=== PATIENT | female | born 1980 | race Caucasian/White ===

== ENCOUNTER 2019-03-25 11:37 | Emergency (ER) | payer OTHER ==
[2019-03-25 12:00] VITALS: TEMP 98.2
--- NOTE | 2019-03-25 12:39 | ED ---
General Adult HPI - General Chief complaint: Recheck/Abnormal Lab/Rx Stated complaint: Med refill Time Seen by Provider: 03/25/19 12:06 Source: patient, RN notes reviewed Mode of arrival: ambulatory Limitations: no limitations - History of Present Illness Initial comments: 38-year-old female presents emergency Department requesting medication refill. Patient states she is now for last 2 days. Patient is on Geodon and Lamictal. Patient states that she has been getting the runaround because she was too stable for [facility] and states that she had numerous amounts for her medications. Patient states that she was told she had insurance would not when she fell she did not. She states she does have insurance now and has an appointment. Patient denies any suicidal or homicidal. Patient offers no other complaints. - Related Data Home Medications Medication Instructions Recorded Confirmed Atorvastatin [Lipitor] 10 mg PO HS 03/25/19 03/25/19 Buspar Unknown Dose 1 tab PO BID 03/25/19 03/25/19 Previous Rx's Medication Instructions Recorded Ziprasidone [Geodon] 40 mg PO HS #14 cap 03/25/19 lamoTRIgine [LaMICtal] 200 mg PO HS #14 tab 03/25/19 Allergies Allergy/AdvReac Type Severity Reaction Status Date / Time venlafaxine [From Effexor] Allergy Swelling Verified 03/25/19 12:30 Review of Systems ROS Statement: Those systems with pertinent positive or pertinent negative responses have been documented in the HPI. ROS Other: All systems not noted in ROS Statement are negative. Past Medical History Past Medical History: Hyperlipidemia History of Any Multi-Drug Resistant Organisms: None Reported Additional Past Surgical History / Comment(s): neck, back Past Psychological History: Bipolar Smoking Status: Never smoker Past Alcohol Use History: None Reported Past Drug Use History: None Reported General Exam Limitations: no limitations General appearance: alert, in no apparent distress Head exam: Present: atraumatic, normocephalic, normal inspection Neck exam: Present: normal inspection, full ROM. Absent: tenderness, meningismus, lymphadenopathy Respiratory exam: Present: normal lung sounds bilaterally. Absent: respiratory distress, wheezes, rales, rhonchi, stridor Cardiovascular Exam: Present: regular rate, normal rhythm, normal heart sounds. Absent: systolic murmur, diastolic murmur, rubs, gallop, clicks GI/Abdominal exam: Present: soft, normal bowel sounds. Absent: distended, tenderness, guarding, rebound, rigid Neurological exam: Present: alert, oriented X3 Psychiatric exam: Present: normal affect, normal mood Skin exam: Present: warm, dry, intact, normal color. Absent: rash Course Vital Signs 03/25/19 11:54 Temperature 98.2 F Pulse Rate 118 H Respiratory 18 Rate Blood Pressure 116/75 O2 Sat by Pulse 97 Oximetry Medical Decision Making - Medical Decision Making Patient will be provided prescriptions for 2 weeks and will follow up at her appointment. Disposition Clinical Impression: Encounter for medication refill, Bipolar disorder Disposition: HOME SELF-CARE Condition: Stable Instructions (If sedation given, give patient instructions): Bipolar Disorder (ED) Additional Instructions: Please return to the Emergency Department if symptoms worsen or any other concerns. Prescriptions: Ziprasidone [Geodon] 40 mg PO HS #14 cap lamoTRIgine [LaMICtal] 200 mg PO HS #14 tab Is patient prescribed a controlled substance at d/c from ED?: No Referrals: None,Stated [Primary Care Provider] - 1-2 days Time of Disposition: 12:38
[2019-03-25 12:54] VITALS: BP 118/74; PULSE 98; RESP 16
== END 2019-03-25 12:50 | disposition home or self-care (01) ==
LOC: EC 11:37
DX: Z76.0 Encounter for issue of repeat prescription (principal); F31.9 Bipolar disorder, unspecified; E78.5 Hyperlipidemia, unspecified; Z79.899 Other long term (current) drug therapy; Z88.8 Allergy status to other drugs, medicaments and biological substances
CPT/HCPCS: 99281

== ENCOUNTER 2019-09-02 21:14 | Inpatient (IN) | payer MEDICAID, OTHER ==
--- NOTE | 2019-09-02 21:36 | ED ---
General Adult HPI - General Chief complaint: Psychiatric Symptoms Stated complaint: Mental Health Time Seen by Provider: 09/02/19 21:22 Source: patient Mode of arrival: ambulatory Limitations: no limitations - History of Present Illness Initial comments: Dictation was produced using [employer] dictation software. please excuse any grammatical, word or spelling errors. Chief Complaint: 39-year-old female past medical history of psychiatric disease presents with suicidal ideation. History of Present Illness: 39-year-old female she presents here voluntarily. She is accompanied by family member. Patient allegedly has been feeling suicidal. She wants to shoot herself with a gun. Patient denies any homicidal ideation. Denies any visual or auditory hallucinations. Patient takes Geodon regularly. She however reports that she has not been taking medications like prescribed. Patient supposedly tried to take 7 Geodon tablets a couple days ago. Patient has any overdose attempt today. Patient denies any attempt at all to harm herself today or within the last 48 hours. The ROS documented in this emergency department record has been reviewed and confirmed by me. Those systems with pertinent positive or negative responses have been documented in the HPI. All other systems are other negative and/or noncontributory. PHYSICAL EXAM: General Impression: Alert and oriented x3, not in acute distress HEENT: Normocephalic atraumatic, extra-ocular movements intact, pupils equal and reactive to light bilaterally, mucous membranes moist. Cardiovascular: Heart regular rate and rhythm, S1&S2 audible, no murmurs, rubs or gallops Chest: Lungs clear to auscultation bilaterally, no rhonchi, no wheeze, no rales Abdomen: Bowel sounds present, abdomen soft, non-tender, non-distended, no organomegaly Musculoskeletal: Pulses present and equal in all extremities, no peripheral edema Motor: no focal deficits noted Neurological: CN II-XII grossly intact, no focal motor or sensory deficits noted Skin: Intact with no visualized rashes Psych: Normal affect and mood ED course: 39-year-old female presents with suicidal ideation. Vital signs upon arrival are within acceptable limits. Patient clear for EPS evaluation. Patient evaluated EPS and will be admitted to inpatient psychiatry. Patient is agreeable and voluntary to be admitted to inpatient psych. - Related Data Home Medications Medication Instructions Recorded Confirmed busPIRone HCL [Buspar] 30 mg PO BID@1200,2100 09/02/19 09/02/19 lamoTRIgine [LaMICtal] 200 mg PO HS 09/02/19 09/02/19 Previous Rx's Medication Instructions Recorded Ziprasidone [Geodon] 40 mg PO HS #14 cap 03/25/19 Allergies Allergy/AdvReac Type Severity Reaction Status Date / Time venlafaxine [From Effexor] Allergy Anaphylaxis Verified 09/02/19 21:42 Review of Systems ROS Statement: Those systems with pertinent positive or pertinent negative responses have been documented in the HPI. ROS Other: All systems not noted in ROS Statement are negative. Past Medical History Past Medical History: Hyperlipidemia History of Any Multi-Drug Resistant Organisms: None Reported Past Surgical History: Adenoidectomy, Back Surgery, Tubal Ligation Additional Past Surgical History / Comment(s): neck, back Past Psychological History: Anxiety, Bipolar, Depression Smoking Status: Current every day smoker Past Alcohol Use History: Rare Past Drug Use History: None Reported General Exam Limitations: no limitations Course Vital Signs 09/02/19 21:16 Temperature 98.9 F Medical Decision Making - Lab Data Lab Results 09/02/19 09/02/19 Range/Units 21:37 21:37 Urine HCG, Qual Not Detected (Not Detectd) Urine Opiates Screen Not Detected (NotDetected) Ur Oxycodone Screen Not Detected (NotDetected) Urine Methadone Screen Not Detected (NotDetected) Ur Propoxyphene Screen Not Detected (NotDetected) Ur Barbiturates Screen Not Detected (NotDetected) U Tricyclic Antidepress Not Detected (NotDetected) Ur Phencyclidine Scrn Not Detected (NotDetected) Ur Amphetamines Screen Detected H (NotDetected) U Methamphetamines Scrn Detected H (NotDetected) U Benzodiazepines Scrn Not Detected (NotDetected) Urine Cocaine Screen Not Detected (NotDetected) U Marijuana (THC) Screen Not Detected (NotDetected) Disposition Clinical Impression: Suicidal ideation Disposition: ADMITTED IP TO THIS HOSP Condition: Fair Referrals: Irlanda Carbajal MD [Primary Care Provider] - 1-2 days Decision Time: 22:46
[2019-09-02 22:31] LABS: Amphetamine Screen,Urine Detected (NotDetected); Barbiturate Screen,Urine Not Detected (NotDetected); Benzodiazepines Screen,Urine Not Detected (NotDetected); Cocaine Screen,Urine Not Detected (NotDetected); Methadone Screen, Urine Not Detected (NotDetected); Opiate Screen,Urine Not Detected (NotDetected); Oxycodone Screen, Urine Not Detected (NotDetected); Phencyclidine Screen,Urine Not Detected (NotDetected); Tricyclic Antidepressant,Urine Not Detected (NotDetected); Urn Cannabinoid Scrn Not Detected (NotDetected)
[2019-09-02] MEDS ORDERED: MAG HYDROX/AL HYDROX/SIMETH 30 ML CUP PO PRN (23:42)
[2019-09-02] MEDS ORDERED: ACETAMINOPHEN TAB 325 MG TAB PO PRN (23:42)
[2019-09-02] MEDS ORDERED: MAGNESIUM HYDROXIDE 2,400 MG/10 ML CUP PO PRN (23:42)
[2019-09-02] MEDS ORDERED: LORazepam 1 MG TAB PO PRN (23:42)
[2019-09-02] MEDS ORDERED: LORazepam 2 MG/ML INJ IM PRN (23:44)
[2019-09-02] MEDS: NICOTINE 14MG/24HR PATCH TRANSDERM SCH (23:50)
[2019-09-03 08:54] LABS: Basophils # (A) 0.1 k/uL (0-0.2); Basophils % (A) 1 %; Eosinophils # (A) 0.1 k/uL (0-0.7); Eosinophils % (A) 1 %; HGB 12.4 gm/dL (11.4-16.0); Lymphocytes # (A) 4.7 k/uL (1.0-4.8); Lymphocytes % (A) 49 %; MCH 29.3 pg (25.0-35.0); MCHC 31.9 g/dL (31.0-37.0); MCV 91.9 fL (80.0-100.0); Mean Platelet Volume 6.9; Monocytes # (A) 0.6 k/uL (0-1.0); Monocytes % (A) 6 %; Neutrophils % (A) 42 %; Platelet Count 411 k/uL (150-450); RBC 4.24 m/uL (3.80-5.40); RDW 13.1 % (11.5-15.5); WBC 9.6 k/uL (3.8-10.6)
[2019-09-03 09:13] LABS: ALT 17 U/L (4-34); AST 24 U/L (14-36); African American GFR (CKD) >90 (>60 ml/min/1.73 sqM); Albumin 3.6 g/dL (3.5-5.0); Alkaline Phosphatase 85 U/L (38-126); Anion Gap 7 mmol/L; Blood Urea Nitrogen 8 mg/dL (7-17); Calcium 9.4 mg/dL (8.4-10.2); Carbon Dioxide 26 mmol/L (22-30); Chloride 106 mmol/L (98-107); Cholesterol 179 mg/dL (<200); Glucose 86 mg/dL (74-99); HDL Cholesterol 51 mg/dL (40-60); LDL Cholesterol,Calculated 104 mg/dL (0-99); Non-African American GFR(CKD) 79 (>60 ml/min/1.73 sqM); Potassium 4.7 mmol/L (3.5-5.1); Sodium 139 mmol/L (137-145); Total Bilirubin 0.6 mg/dL (0.2-1.3); Total Protein 6.6 g/dL (6.3-8.2); Triglycerides 122 mg/dL (<150)
[2019-09-03] MEDS: NICOTINE 14MG/24HR PATCH TRANSDERM SCH (09:49)
--- NOTE | 2019-09-03 12:30 | P.HP ---
Psychiatric H&P - . H&P Date: 09/03/19 History & Physical: IDENTIFYING DATA: She is 39-year-old female admitted voluntarily to the psychiatric unit with suicidal ideation. HISTORY OF PRESENT ILLNESS: I reviewed the medical record and interviewed the patient. She is irritable and minimally cooperative. She was guarded and defensive especially about her substance use. 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 She complained that since she was released from [facility] she has difficulty leaving the house. She alleged that she seldom leaves her basement apartment and is anxious in public. She was unwilling to discuss her her thoughts or concerns about being in public. She did not describe clear episodes of anxiety that built up to crescendo consistent with a panic attack. She said that she was "doing well" for the most part and described herself as "usually" upbeat. Yesterday she was "drinking all day" and she started to "feel bad". In the emergency room she told the EPS nurse that she felt like she wants to "eat all the pills. First thought was sucking on a barrel shotgun, but they came and took all the guns out." At the time of the assessment she acknowledged the suicidal statement. She was evasive about her suicidal thoughts. She complained of feeling "tired" and she was initially reluctant to participate exam. One point during exam she told that she was "tired" of the questioning but did not walk out of the interview. I was unable to get a comprehensive history of present illness. Her UDS was positive for amphetamines and methamphetamine. Her BAT was 0. PAST PSYCHIATRIC HISTORY: She had one prior admission to this unit. She presented involuntarily with a history of suicidal ideation and physical and verbal aggression. When she arrived on the unit she was aggressive and threatening to "kill everybody on the unit." Her management required seclusion and restraint. She is discharged with diagnosis of bipolar 1 disorder most recent episode mixed and polysubstance abuse. Discharge medication was Depakote 1000 mg at bedtime. According to record she was diagnosed with ADHD as a child. While she was in [facility] she was treated with combination of Lamictal, Geodon and BuSpar. She stopped her medications about one week ago even though the medications were effective in controlling her mood. She was unable to explain the reason for stopping the medication. She was referred to below to counseling by a community mental health. She last met with a therapist "about a month ago". Her primary care provider prescribes her psychotropic medications. PAST MEDICAL HISTORY: She has a history of scoliosis with insertion of a Hatch rods and migraines. ALLERGIES: Venlafaxine SUBSTANCE USE HISTORY: She was guarded and defensive about her substance use history. She admitted to drinking but became angry when I ask questions to clarify the amount and frequency. She also admitted to continued use of methamphetamine. She has no concern that her urine drug screens have been positive for methamphetamine. According to the record she has a history of alcohol use disorder as well as history of use of heroin, cocaine, marijuana and methamphetamine. 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 SOCIAL HISTORY: She graduated from high school and according to the record was close to completing her associate's degree in for and 2011. She is . She has 2 children a son and a daughter. She is unemployed and has no income. 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 She made eye contact and appeared to attend to the interview. She had multiple tattoos on her neck, calf, chest, hip, left arm, right arm, right foot and right forearm. She showed slight psychomotor retardation but no abnormal movements. Her speech was not spontaneous and was consistent with her mood. She was irritable and angry. She was angry at her mother and cousin for bringing her to the hospital. At times she is an appropriate. She denied current suicidal ideation or wishes. She denied current homicidal ideation. She did not express feelings of hopelessness, helplessness or worthlessness. She didn't express ideas reference, paranoid ideation or delusional thoughts. Her thinking was concrete but his associations were coherent and logical. She did not demonstrate perseveration, neologisms or blocking. She denied hallucinations did not appear to be responding to internal stimuli global impression of intellect is average. She is aware of her illness is accepting of continued treatment. STRENGTHS: Supportive family, stable housing, good physical health WEAKNESSES: Legal problems, substance use problems, personality disorder IMPRESSION: She to 39-year-old female admitted voluntarily to unit with complaints of suicidal ideation and a plan to overdose on medication. She was irritable and minimally cooperative with the interview. She complained that she was coerced come to the hospital but acknowledges that if her cousin and mother had not intervened she may have overdosed on pills. She complains of chronic anxiety and fear of going out in public. The current episode appears to develop in the context of binge drinking episode. She described intermittent alcohol use and periodic insufflation of methamphetamine. She'll restart her outpatient medications and when she is stable refer her for continued outpatient treatment. PRINCIPLE DIAGNOSIS: Unspecified mood disorder, alcohol abuse, methamphetamine abuse, rule out bipolar disorder, rule out alcohol and/or methamphetamine induced mood disorder rule out agoraphobia, tobacco use, cluster B personality disorder. RECOMMENDATION: Admit the psychiatric unit. Safety precautions. Consult medicine for initial physical exam and medical history. 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 Restart BuSpar 30 mg by mouth twice a day, Lamictal 200 mg at bedtime and Geodon 40 mg at bedtime. Habitrol 14 mg for smoking cessation. Ativan 1 mg by mouth and/or IM for agitation or aggression. Encourage participation in therapeutic groups and activities. Evaluate clinical status response to treatment daily basis. Allergies Allergy/AdvReac Type Severity Reaction Status Date / Time venlafaxine [From Effexor] Allergy Anaphylaxis Verified 09/02/19 21:42 Vital Signs Temp 98.4 F 09/03/19 06:24 Pulse 73 09/03/19 06:24 Resp 15 09/03/19 06:24 BP 106/66 09/03/19 06:24 Pulse Ox 97 09/02/19 23:33 Intake & Output 09/02/19 09/03/19 09/03/19 18:59 06:59 18:59 Weight 66.497 kg Laboratory Last Values WBC 9.6 k/uL (3.8-10.6) 09/03/19 07:18 RBC 4.24 m/uL (3.80-5.40) 09/03/19 07:18 Hgb 12.4 gm/dL (11.4-16.0) 09/03/19 07:18 Hct 39.0 % (34.0-46.0) 09/03/19 07:18 MCV 91.9 fL (80.0-100.0) 09/03/19 07:18 MCH 29.3 pg (25.0-35.0) 09/03/19 07:18 MCHC 31.9 g/dL (31.0-37.0) 09/03/19 07:18 RDW 13.1 % (11.5-15.5) 09/03/19 07:18 Plt Count 411 k/uL (150-450) 09/03/19 07:18 Neutrophils % 42 % 09/03/19 07:18 Lymphocytes % 49 % 09/03/19 07:18 Monocytes % 6 % 09/03/19 07:18 Eosinophils % 1 % 09/03/19 07:18 Basophils % 1 % 09/03/19 07:18 Neutrophils # 4.0 k/uL (1.3-7.7) 09/03/19 07:18 Lymphocytes # 4.7 k/uL (1.0-4.8) 09/03/19 07:18 Monocytes # 0.6 k/uL (0-1.0) 09/03/19 07:18 Eosinophils # 0.1 k/uL (0-0.7) 09/03/19 07:18 Basophils # 0.1 k/uL (0-0.2) 09/03/19 07:18 Sodium 139 mmol/L (137-145) 09/03/19 07:18 Potassium 4.7 mmol/L (3.5-5.1) 09/03/19 07:18 Chloride 106 mmol/L (98-107) 09/03/19 07:18 Carbon Dioxide 26 mmol/L (22-30) 09/03/19 07:18 Anion Gap 7 mmol/L 09/03/19 07:18 BUN 8 mg/dL (7-17) 09/03/19 07:18 Creatinine 0.93 mg/dL (0.52-1.04) 09/03/19 07:18 Est GFR (CKD-EPI)AfAm >90 (>60 ml/min/1.73 sqM) 09/03/19 07:18 Est GFR (CKD-EPI)NonAf 79 (>60 ml/min/1.73 sqM) 09/03/19 07:18 Glucose 86 mg/dL (74-99) 09/03/19 07:18 Calcium 9.4 mg/dL (8.4-10.2) 09/03/19 07:18 Total Bilirubin 0.6 mg/dL (0.2-1.3) 09/03/19 07:18 AST 24 U/L (14-36) 09/03/19 07:18 ALT 17 U/L (4-34) 09/03/19 07:18 Alkaline Phosphatase 85 U/L (38-126) 09/03/19 07:18 Total Protein 6.6 g/dL (6.3-8.2) 09/03/19 07:18 Albumin 3.6 g/dL (3.5-5.0) 09/03/19 07:18 Triglycerides 122 mg/dL (<150) 09/03/19 07:18 Cholesterol 179 mg/dL (<200) 09/03/19 07:18 LDL Cholesterol, Calc 104 mg/dL (0-99) H 09/03/19 07:18 HDL Cholesterol 51 mg/dL (40-60) 09/03/19 07:18 TSH 1.550 mIU/L (0.465-4.680) 09/03/19 07:18 Urine HCG, Qual Not Detected (Not Detectd) 09/02/19 21:37 Urine Opiates Screen Not Detected (NotDetected) 09/02/19 21:37 Ur Oxycodone Screen Not Detected (NotDetected) 09/02/19 21:37 Urine Methadone Screen Not Detected (NotDetected) 09/02/19 21:37 Ur Propoxyphene Screen Not Detected (NotDetected) 09/02/19 21:37 Ur Barbiturates Screen Not Detected (NotDetected) 09/02/19 21:37 U Tricyclic Antidepress Not Detected (NotDetected) 09/02/19 21:37 Ur Phencyclidine Scrn Not Detected (NotDetected) 09/02/19 21:37 Ur Amphetamines Screen Detected (NotDetected) H 09/02/19 21:37 U Methamphetamines Scrn Detected (NotDetected) H 09/02/19 21:37 U Benzodiazepines Scrn Not Detected (NotDetected) 09/02/19 21:37 Urine Cocaine Screen Not Detected (NotDetected) 09/02/19 21:37 U Marijuana (THC) Screen Not Detected (NotDetected) 09/02/19 21:37 09/03/19 10:04 09/03/19 12:25
[2019-09-03] MEDS: busPIRone HCl 10 MG TAB PO SCH ×2 (13:24→20:35)
[2019-09-03 17:20] LABS: Hemoglobin A1C 5.6 % (4.0-6.0)
[2019-09-03] MEDS ORDERED: ZIPRASIDONE 40 MG CAP PO SCH (21:00)
[2019-09-03] MEDS ORDERED: lamoTRIgine 100 MG TAB PO SCH (21:00)
[2019-09-04 06:53] VITALS: BP 104/61; PULSE 88; RESP 16; TEMP 98.5
[2019-09-04] MEDS: NICOTINE 14MG/24HR PATCH TRANSDERM SCH (10:00)
[2019-09-04] MEDS: busPIRone HCl 10 MG TAB PO SCH (11:17)
--- NOTE | 2019-09-04 15:38 | P.DS ---
Providers Date of admission: 09/02/19 23:17 Attending physician: Ziggy Rodriguez MD Consults: 09/02/19 23:42 Consult Physician Routine Consulting Provider: Erasmo Sellers Consult Reason/Comments: H&P and medical Do you want consulting provider notified?: Yes Primary care physician: Irlanda Odenko - Discharge Diagnosis(es) (1) Psychoactive substance-induced mood disorder Status: Acute (2) Methamphetamine use disorder, moderate Status: Acute (3) Alcohol use disorder, mild, abuse Status: Acute (4) Antisocial personality disorder Status: Acute (5) Legal problem Status: Acute (6) Tobacco use disorder He is not interested in smoking cessation. He declined a prescription for nicotine replacement therapy. Brief intervention provided Status: Acute Hospital Course: She is 39-year-old female admitted voluntarily to the psychiatric unit with suicidal ideation. She is irritable and minimally cooperative. She was guarded and defensive especially about her substance use. 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 She complained that since she was released from [facility] she has difficulty leaving the house. She alleged that she seldom leaves her basement apartment and is anxious in public. She was unwilling to discuss her her thoughts or concerns about being in public. She did not describe clear episodes of anxiety that built up to crescendo consistent with a panic attack. She said that she was "doing well" for the most part and described herself as "usually" upbeat. Yesterday she was "drinking all day" and she started to "feel bad". In the emergency room she told the EPS nurse that she felt like she wants to "eat all the pills. First thought was sucking on a barrel shotgun, but they came and took all the guns out." At the time of the assessment she acknowledged the suicidal statement. She was evasive about her suicidal thoughts. She complained of feeling "tired" and she was initially reluctant to participate exam. One point during exam she told that she was "tired" of the questioning but did not walk out of the interview. I was unable to get a comprehensive history of present illness. Her UDS was positive for amphetamines and methamphetamine. Her BAT was 0. She had one prior admission to this unit. She presented involuntarily with a history of suicidal ideation and physical and verbal aggression. When she arrived on the unit she was aggressive and threatening to "kill everybody on the unit." Her management required seclusion and restraint. She is discharged with diagnosis of bipolar 1 disorder most recent episode mixed and polysubstance abuse. Discharge medication was Depakote 1000 mg at bedtime. According to record she was diagnosed with ADHD as a child. [facility] she was treated with combination of Lamictal, Geodon and BuSpar. She stopped her medi cations about one week ago even though the medications were effective in controlling her mood. She was unable to explain the reason for stopping the medication. She was referred to below [facility]. She last met with a therapist "about a month ago". Her primary care provider prescribes her She was guarded and defensive about her substance use history. She admitted to drinking but became angry when I ask questions to clarify the amount and frequency. She also admitted to continued use of methamphetamine. She has no concern that her urine drug screens have been positive for methamphetamine. According to the record she has a history of alcohol use disorder as well as history of use of heroin, cocaine, marijuana and methamphetamine. 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 She is on parole and admits to testing positive for alcohol and methamphetamine. 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 Provided a copy a biopsychosocial assessment. We restarted her psychotropic medications prescribed to [facility] was in [facility]-Lamictal 20 mg at bedtime, BuSpar 30 m g by mouth twice a day and ziprasidone 40 mg at bedtime. She did not participate in therapeutic activities or groups. She did not interact with treatment staff or peers. She slept in her room and came out only for meals. On the second day of admission she stated that she has "return to normal" and requested discharge. She denied having suicidal ideation, plan or intent. She denied feeling depressed or persistently anxious. She denied psychotic symptoms such as hallucinations, ideas reference, thought insertion etc. At time of discharge she presented as a casually groomed 39-year-old female who was pleasant on approach. She made eye contact and attended the interview. She had multiple tattoos but no prominent physical abnormalities. She had a blunted but bright facial expression. She is alert and oriented to person, place and time. She showed no abnormality of psychomotor activity. Her gait was slow but steady. His speech was spontaneous with normal rate, rhythm and volume. Affect was bright, stable and appropriate. She denied suicidal ideation and wishes. She denied homicidal ideation. She denied feeling hopeless, helpless or worthless. She did not express ideas reference, paranoid ideation or delusions. Her thinking was abstract and associations were coherent, logical and goal directed. She denied hallucinations did not appear to responding to internal stimuli. Patient Condition at Discharge: Stable Plan - Discharge Summary New Discharge Prescriptions: Continue busPIRone HCL [Buspar] 30 mg PO BID@1200,2100 #60 tab Ziprasidone [Geodon] 40 mg PO HS #30 cap lamoTRIgine [LaMICtal] 200 mg PO HS #60 tab Discharge Medication List Ziprasidone [Geodon] 40 mg PO HS #30 cap 09/04/19 [Rx] busPIRone HCL [Buspar] 30 mg PO BID@1200,2100 #60 tab 09/04/19 [Rx] lamoTRIgine [LaMICtal] 200 mg PO HS #60 tab 09/04/19 [Rx] Follow up Appointment(s)/Referral(s): [facility] [Outside] - 09/11/19 2:00 pm (Lili Jacinto) Irlanda Carbajal MD [Primary Care Provider] - 1-2 days Patient Instructions/Handouts: Mood Disorders (DC), Depression (DC), Suicide Prevention (DC) Discharge Disposition: HOME SELF-CARE
--- NOTE | 2019-09-05 08:43 | P.CONS ---
History of Present Illness - Reason for Consult Consult date: 09/04/19 medical eval - Chief Complaint Suicidal - History of Present Illness Trinity Lester is a 39 yo F with PMH of bipolar disorder who presented to the ED complaining of suicidal ideation. Pt had apparently not been taking her prescribed geodon. She declines addressing this with me today and notes that she is physically feeling well with the exception of a stuffy nose. She reports good sleep and chronically low energy levels. On presentation her vitals and labs were unremarkable, UDS positive for amphetamines and methamphetamine. Currently she denies SI. Review of Systems All systems: negative Constitutional: Denies chills, Denies fever Eyes: denies blurred vision, denies pain Ears, nose, mouth and throat: Denies headache, Denies sore throat Cardiovascular: Denies chest pain, Denies shortness of breath Respiratory: Denies cough Gastrointestinal: Denies abdominal pain, Denies diarrhea, Denies nausea, Denies vomiting Genitourinary: Denies dysuria, Denies hematuria Musculoskeletal: Denies myalgias Integumentary: Denies pruritus, Denies rash Neurological: Denies numbness, Denies weakness Psychiatric: Reports as per HPI, Reports anhedonia, Denies anxiety, Denies depression Endocrine: Denies fatigue, Denies weight change Past Medical History Past Medical History: Hyperlipidemia History of Any Multi-Drug Resistant Organisms: None Reported Past Surgical History: Adenoidectomy, Back Surgery, Tubal Ligation Additional Past Surgical History / Comment(s): neck, back Past Psychological History: Anxiety, Bipolar, Depression Smoking Status: Current every day smoker Past Alcohol Use History: Rare Past Drug Use History: None Reported Medications and Allergies Home Medications Medication Instructions Recorded Confirmed Type Ziprasidone [Geodon] 40 mg PO HS #30 cap 09/04/19 Rx busPIRone HCL [Buspar] 30 mg PO BID@1200,2100 #60 tab 09/04/19 Rx lamoTRIgine [LaMICtal] 200 mg PO HS #60 tab 09/04/19 Rx Allergies Allergy/AdvReac Type Severity Reaction Status Date / Time venlafaxine [From Effexor] Allergy Anaphylaxis Verified 09/02/19 21:42 Physical Exam General: well nourished, well developed, NAD. Vitals reviewed Eyes: PERRL, EOMI, conjunctiva normal HENT: normocephalic, mucus membranes moist Neck: supple, no JVD Lungs: normal respiratory effort, no wheezes or rales CV: Regular rate and rhythm, no murmur. Peripheral pulses 2+ Abdomen: soft, nondistended, no organomegaly Lymph: no cervical or axillary LAD Skin: warm and dry. Neuro: A&Ox3. Good eye contact. Flattened affect, withdrawn Results CBC & Chem 7: 09/03/19 07:18 09/03/19 07:18 Assessment and Plan (1) Alcohol use disorder, mild, abuse Status: Acute Code(s): F10.10 - ALCOHOL ABUSE, UNCOMPLICATED SNOMED Code(s): 02043072 (2) Methamphetamine use disorder, moderate Status: Acute Code(s): F15.20 - OTHER STIMULANT DEPENDENCE, UNCOMPLICATED SNOMED Code(s): 416646600 (3) Psychoactive substance-induced mood disorder Status: Acute Code(s): F19.94 - OTH PSYCHOACTIVE SUBSTANCE USE, UNSP W MOOD DISORDER; F06.30 - MOOD DISORDER DUE TO KNOWN PHYSIOLOGICAL CONDITION, UNSP SNOMED Code(s): 39275491 (4) Suicidal ideation Status: Acute Code(s): R45.851 - SUICIDAL IDEATIONS SNOMED Code(s): 8522731 Plan: 1. Suicidal ideation. Polysubstance abuse. management per psychiatry. Will continue to follow 2. Nasal congestion, rhinorrhea. Advised her to quit smoking, can take zyrtec and flonase prn
== END 2019-09-04 14:15 | disposition home or self-care (01) | DRG 897 ==
LOC: EC 21:14 → 3MHU 23:17
PROVIDERS: ADMIT Psychiatry & Neurology Psychiatry; ATTEND Psychiatry & Neurology Psychiatry
DX: F19.94 Other psychoactive substance use, unspecified with psychoactive substance-induced mood disorder (principal); R45.851 Suicidal ideations; F15.24 Other stimulant dependence with stimulant-induced mood disorder; F10.10 Alcohol abuse, uncomplicated; F60.2 Antisocial personality disorder; F41.9 Anxiety disorder, unspecified; F90.9 Attention-deficit hyperactivity disorder, unspecified type; E78.5 Hyperlipidemia, unspecified; M41.9 Scoliosis, unspecified; G43.909 Migraine, unspecified, not intractable, without status migrainosus; F17.200 Nicotine dependence, unspecified, uncomplicated; Z79.899 Other long term (current) drug therapy; Z65.3 Problems related to other legal circumstances; Z56.0 Unemployment, unspecified; Z98.890 Other specified postprocedural states; Z98.51 Tubal ligation status
CPT/HCPCS: 80053; 80061; 80306; 81025; 82075; 83036; 84443; 85025

== ENCOUNTER 2020-07-04 15:52 | Emergency (ER) | payer OTHER ==
[2020-07-04 15:57] VITALS: BP 109/63; PULSE 133; RESP 18; TEMP 98.8
[2020-07-04] MEDS ORDERED: CEPHALEXIN 500 MG CAP PO STA (16:14)
[2020-07-04] MEDS ORDERED: IBUPROFEN 600 MG TAB PO STA (16:14)
[2020-07-04] MEDS ORDERED: CEPHALEXIN 500MG STARTER PACK 4 CAP BTL PO STA (16:42)
--- NOTE | 2020-07-04 16:45 | ED ---
General Adult HPI - General Chief complaint: Skin/Abscess/Foreign Body Stated complaint: L Arm Pain Source: patient Mode of arrival: ambulatory Limitations: no limitations - History of Present Illness Initial comments: 40-year-old female who presents to the emergency department with reported left axillary pain. The patient does believe that she is developing an abscess in the area. Denies previous history of abscess or MRSA. She began having swelling and pain to the left axilla yesterday. Reports that she was placing warm compresses to the site. She has not gotten any drainage from the area. No fevers or chills. Denies any nausea or vomiting. Has not taken any medications for her symptoms. No other alleviating, precipitating or modifying factors - Related Data Previous Rx's Medication Instructions Recorded Ziprasidone [Geodon] 40 mg PO HS #30 cap 09/04/19 busPIRone HCL [Buspar] 30 mg PO BID@1200,2100 #60 tab 09/04/19 lamoTRIgine [LaMICtal] 200 mg PO HS #60 tab 09/04/19 Cephalexin [Keflex] 500 mg PO Q6HR #40 cap 07/04/20 Ibuprofen [Motrin] 600 mg PO Q8HR PRN #20 tab 07/04/20 Allergies Allergy/AdvReac Type Severity Reaction Status Date / Time venlafaxine [From Effexor] Allergy Anaphylaxis Verified 07/04/20 15:57 Review of Systems ROS Statement: Those systems with pertinent positive or pertinent negative responses have been documented in the HPI. ROS Other: All systems not noted in ROS Statement are negative. Past Medical History Past Medical History: Hyperlipidemia History of Any Multi-Drug Resistant Organisms: None Reported Past Surgical History: Adenoidectomy, Back Surgery, Tubal Ligation Additional Past Surgical History / Comment(s): neck, back, scoliosis Past Psychological History: Anxiety, Bipolar, Depression Smoking Status: Current every day smoker Past Alcohol Use History: Rare Past Drug Use History: None Reported General Exam Limitations: no limitations Course Vital Signs 07/04/20 15:55 Temperature 98.8 F Pulse Rate 133 H Respiratory 18 Rate Blood Pressure 109/63 O2 Sat by Pulse 99 Oximetry Medical Decision Making - Medical Decision Making Upon arrival patient is placed into room 18. A thorough history and physical exam was performed. Evaluation of the patient's left axillary region demon strates redness and swelling. I did ultrasound the area however there is no identifiable collected abscess. The patient does demonstrate a cellulitis at this time. She was given Motrin 600 for pain control. I also provided her with a dose of Keflex. Patient is instructed to place warm compresses to the site. Begin taking the antibiotics as directed. She should follow up with her primary care physician in 2-4 days. Return to the emergency department for drainage should an abscess form and she starts to have drainage. Patient agreed to this. Given written and verbal discharge instructions and discharged home in stable condition Disposition Clinical Impression: Cellulitis Disposition: HOME SELF-CARE Condition: Stable Instructions (If sedation given, give patient instructions): Cellulitis (ED) Additional Instructions: Take the antibiotics and pain medications as directed. Place warm compresses to the site. Return to the ED when the area starts to drain or comes to a head. Follow up with your doctor in 2-4 days. Prescriptions: Cephalexin [Keflex] 500 mg PO Q6HR #40 cap Ibuprofen [Motrin] 600 mg PO Q8HR PRN #20 tab PRN Reason: Pain Is patient prescribed a controlled substance at d/c from ED?: No Referrals: Irlanda Carbajal MD [Primary Care Provider] - 1-2 days Time of Disposition: 16:45
== END 2020-07-04 16:50 | disposition home or self-care (01) ==
LOC: EC 15:52
DX: L03.114 Cellulitis of left upper limb (principal); F17.200 Nicotine dependence, unspecified, uncomplicated; Z88.8 Allergy status to other drugs, medicaments and biological substances
CPT/HCPCS: 99283

== ENCOUNTER 2022-11-07 18:38 | Emergency (ER) | payer OTHER ==
[2022-11-07 18:49] VITALS: TEMP 98.4
[2022-11-07] MEDS ORDERED: SODIUM CHLORIDE 0.9% 1,000 ML IV STA (19:23)
[2022-11-07] MEDS ORDERED: MORPHINE SULFATE 4 MG/ML SYRINGE IVP STA (19:25)
--- NOTE | 2022-11-07 19:36 | ED ---
General Adult HPI - General Chief complaint: Back Pain/Injury Stated complaint: Abd/back pain Time Seen by Provider: 11/07/22 19:08 Source: patient, family Mode of arrival: wheelchair Limitations: no limitations - History of Present Illness Initial comments: Patient is a 42-year-old female presenting with chief complaint of back and abdominal pain. Patient states that the pain started about 5 days ago. Pain is in the lower back in the lower abdomen. She has been taking Motrin, Tylenol, gabapentin. Patient has history of tubal ligation, states that about 4 months ago she did have positive at home test. Patient states that she has been having regular menstrual cycles with her last menstrual cycle occurring last week. She denies any loss of bowel or bladder control or saddle paresthesia. No nausea or vomiting. No fevers or chills. No chest pain or difficulty breathing. No constipation or diarrhea. She does admit to dysuria. No hematuria. Denies any injury or trauma. - Related Data Previous Rx's Medication Instructions Recorded Ziprasidone [Geodon] 40 mg PO HS #30 cap 09/04/19 busPIRone HCL [Buspar] 30 mg PO BID@1200,2100 #60 tab 09/04/19 lamoTRIgine [LaMICtal] 200 mg PO HS #60 tab 09/04/19 Cephalexin [Keflex] 500 mg PO Q6HR #40 cap 07/04/20 Ibuprofen [Motrin] 600 mg PO Q8HR PRN #20 tab 07/04/20 Allergies Allergy/AdvReac Type Severity Reaction Status Date / Time venlafaxine [From Effexor] Allergy Anaphylaxis Verified 07/04/20 15:57 Review of Systems ROS Statement: Those systems with pertinent positive or pertinent negative responses have been documented in the HPI. ROS Other: All systems not noted in ROS Statement are negative. Past Medical History Past Medical History: Cancer, Hyperlipidemia Additional Past Medical History / Comment(s): UTERINE CA. CERVICAL FRACTURE History of Any Multi-Drug Resistant Organisms: None Reported Past Surgical History: Adenoidectomy, Back Surgery, Tubal Ligation Additional Past Surgical History / Comment(s): neck, back, scoliosis. PRUDENCE LUPE TO SPINE Past Psychological History: Anxiety, Bipolar, Depression Smoking Status: Current every day smoker Past Alcohol Use History: Rare Past Drug Use History: None Reported General Exam Limitations: no limitations General appearance: alert, anxious Head exam: Present: atraumatic, normocephalic, normal inspection Eye exam: Present: normal appearance, EOMI. Absent: scleral icterus, periorbital swelling Neck exam: Present: normal inspection, full ROM Respiratory exam: Present: normal lung sounds bilaterally. Absent: respiratory distress, wheezes, rales, rhonchi, stridor Cardiovascular Exam: Present: normal rhythm, tachycardia, normal heart sounds. Absent: systolic murmur, diastolic murmur, rubs, gallop, clicks GI/Abdominal exam: Present: distended, tenderness. Absent: soft, guarding, rebound, rigid Neurological exam: Present: alert, oriented X3, CN II-XII intact Psychiatric exam: Present: normal affect, normal mood Skin exam: Present: warm, dry, intact, normal color. Absent: rash Course Vital Signs 11/07/22 11/07/22 18:42 21:02 Temperature 98.4 F Pulse Rate 119 H 115 H Respiratory 36 H 20 Rate Blood Pressure 122/73 119/75 O2 Sat by Pulse 100 99 Oximetry Medical Decision Making - Medical Decision Making Was pt. sent in by a medical professional or institution (, PA, MICROWAVE TECHNICIAN, urgent ca re, hospital, or care home...) When possible be specific @ -No Did you speak to anyone other than the patient for history (EMS, parent, family, police, friend...)? What history was obtained from this source @ -No Did you review nursing and triage notes (agree or disagree)? Why? @ -I reviewed and agree with nursing and triage notes Were old charts reviewed (outside hosp., previous admission, EMS record, old EKG, old radiological studies, urgent care reports/EKG's, care home records)? Report findings @ -No old charts were reviewed Differential Diagnosis (chest pain, altered mental status, abdominal pain women, abdominal pain men, vaginal bleeding, weakness, fever, dyspnea, syncope, headache, dizziness, GI bleed, back pain, seizure, CVA, palpatations, mental health, musculoskeletal)? @ -MDM Differential Abdominal Pain Women: Appendicitis, Cholecystitis, diverticulosis, ischemic bowel, pancreatitis, hepatitis, UTI, gastroenteritis, AAA, incarcerated hernia, bowel obstruction, constipation, inflammatory bowel, hepatitis, peptic ulcer disease, splenic infarction, perforated viscus, vulvitis, ovarian torsion, PID, kidney stone, placenta abruption... This is not meant to be an all-inclusive list EKG interpreted by me (3pts min.). @ -As above X-rays interpreted by me (1pt min.). @ -None done CT interpreted by me (1pt min.). @ -CT shows fecal debris within the ascending and transverse colon. Mild fecal debris within the descending colon. Correlate for constipation. No acute osseous abnormality U/S interpreted by me (1pt. min.). @ -None done What testing was considered but not performed or refused? (CT, X-rays, U/S, labs)? Why? @ -None What meds were considered but not given or refused? Why? @ -None Did you discuss the management of the patient with other professionals (professionals i.e. , PA, MICROWAVE TECHNICIAN, lab, RT, psych nurse, social worker aide, yard cleaner, t eacher, job placement officer, leather case finisher)? Give summary @ -No Was smoking cessation discussed for >3mins.? @ -No Was critical care preformed (if so, how long)? @ -No Were there social determinants of health that impacted care today? How? (Homelessness, low income, unemployed, alcoholism, drug addiction, transportation, low edu. Level, literacy, decrease access to med. care, [facility], rehab)? @ -No Was there de-escalation of care discussed even if they declined (Discuss DNR or withdrawal of care, Hospice)? DNR status @ -No What co-morbidities impacted this encounter? (DM, HTN, Smoking, COPD, CAD, Cancer, CVA, ARF, Chemo, Hep., AIDS, mental health diagnosis, sleep apnea, morbid obesity)? @ -None Was patient admitted / discharged? Hospital course, mention meds given and [place], prescriptions, significant lab abnormalities, going to OR and other pertinent info. @ -Patient left AMA. 42-year-old female presented with chief complaint of lower abdominal pain and back pain. Patient has been having abdominal distention which was noted on physical exam. WBC 12.4. Urine negative for infectious process or bleeding and hCG is negative. CT showed evidence of constipation. I discussed these findings with the patient. Patient became aggravated and stated that she is not not constipated and had a bowel movement today. I explained to the patient even though she had a bowel movement today there is evidence of constipation on her imaging which may be causing her abdominal and back pain. I advised an enema at this time. I offered other options for constipation relief. Patient became increasingly irritable and demanded that her IV be taken out as she wanted to leave. Patient left AMA. My attending is Dr. Freeman Undiagnosed new problem with uncertain prognosis? @ -No Drug Therapy requiring intensive monitoring for toxicity (Heparin, Nitro, Insulin, Cardizem)? @ -No Were any procedures done? @ -No Diagnosis/symptom? @ -constipation Acute, or Chronic, or Acute on Chronic? @ -Acute Uncomplicated (without systemic symptoms) or Complicated (systemic symptoms)? @ -Uncomplicated Side effects of treatment? @ -No Exacerbation, Progression, or Severe Exacerbation? @ -No Poses a threat to life or bodily function? How? (Chest pain, [place], [place], pneumonia, PE, COPD, DKA, ARF, appy, cholecystitis, CVA, Diverticulitis, Homicidal, Suicidal, threat to staff... and all critical care pts) @ -No - Lab Data Result diagrams: 11/07/22 19:41 11/07/22 19:41 Lab Results 11/07/22 11/07/22 11/07/22 Range/Units 19:41 19:41 19:41 WBC 12.4 H (3.8-10.6) k/uL RBC 4.29 (3.80-5.40) m/uL Hgb 12.6 (11.4-16.0) gm/dL Hct 38.3 (34.0-46.0) % MCV 89.2 (80.0-100.0) fL MCH 29.3 (25.0-35.0) pg MCHC 32.8 (31.0-37.0) g/dL RDW 13.3 (11.5-15.5) % Plt Count 415 (150-450) k/uL MPV 7.3 Neutrophils % 72 % Lymphocytes % 19 % Monocytes % 6 % Eosinophils % 1 % Basophils % 0 % Neutrophils # 9.0 H (1.3-7.7) k/uL Lymphocytes # 2.4 (1.0-4.8) k/uL Monocytes # 0.8 (0-1.0) k/uL Eosinophils # 0.1 (0-0.7) k/uL Basophils # 0.0 (0-0.2) k/uL PT 9.8 (9.0-12.0) sec INR 0.9 (<1.2) APTT 25.2 (22.0-30.0) sec Sodium 134 L (137-145) mmol/L Potassium 4.6 (3.5-5.1) mmol/L Chloride 101 (98-107) mmol/L Carbon Dioxide 27 (22-30) mmol/L Anion Gap 6 mmol/L BUN 9 (7-17) mg/dL Creatinine 0.62 (0.52-1.04) mg/dL Est GFR (CKD-EPI)AfAm >90 (>60 ml/min/1.73 sqM) Est GFR (CKD-EPI)NonAf >90 (>60 ml/min/1.73 sqM) Glucose 104 H (74-99) mg/dL Plasma Lactic Acid [place] (0.7-2.0) mmol/L Calcium 9.0 (8.4-10.2) mg/dL Total Bilirubin 1.2 (0.2-1.3) mg/dL AST 27 (14-36) U/L ALT 20 (4-34) U/L Alkaline Phosphatase 108 (38-126) U/L Total Protein 7.1 (6.3-8.2) g/dL Albumin 3.9 (3.5-5.0) g/dL Amylase 42 (30-110) U/L Lipase 36 (23-300) U/L Urine Color Urine Appearance (Clear) Urine pH (5.0-8.0) Ur Specific [place] (1.001-1.035) Urine Protein (Negative) Urine Glucose (UA) (Negative) Urine Ketones (Negative) Urine Blood (Negative) Urine Nitrite (Negative) Urine Bilirubin (Negative) Urine Urobilinogen (<2.0) mg/dL Ur Leukocyte Esterase (Negative) Urine RBC (0-5) /hpf Urine WBC (0-5) /hpf Ur Squamous Epith Cells (0-4) /hpf Urine Bacteria (None) /hpf Urine Mucus (None) /hpf Urine HCG, Qual (Not Detectd) 11/07/22 11/07/22 11/07/22 Range/Units 19:41 19:41 19:41 WBC (3.8-10.6) k/uL RBC (3.80-5.40) m/uL Hgb (11.4-16.0) gm/dL Hct (34.0-46.0) % MCV (80.0-100.0) fL MCH (25.0-35.0) pg MCHC (31.0-37.0) g/dL RDW (11.5-15.5) % Plt Count (150-450) k/uL MPV Neutrophils % % Lymphocytes % % Monocytes % % Eosinophils % % Basophils % % Neutrophils # (1.3-7.7) k/uL Lymphocytes # (1.0-4.8) k/uL Monocytes # (0-1.0) k/uL Eosinophils # (0-0.7) k/uL Basophils # (0-0.2) k/uL PT (9.0-12.0) sec INR (<1.2) APTT (22.0-30.0) sec Sodium (137-145) mmol/L Potassium (3.5-5.1) mmol/L Chloride (98-107) mmol/L Carbon Dioxide (22-30) mmol/L Anion Gap mmol/L BUN (7-17) mg/dL Creatinine (0.52-1.04) mg/dL Est GFR (CKD-EPI)AfAm (>60 ml/min/1.73 sqM) Est GFR (CKD-EPI)NonAf (>60 ml/min/1.73 sqM) Glucose (74-99) mg/dL Plasma Lactic Acid [place] 1.1 (0.7-2.0) mmol/L Calcium (8.4-10.2) mg/dL Total Bilirubin (0.2-1.3) mg/dL AST (14-36) U/L ALT (4-34) U/L Alkaline Phosphatase (38-126) U/L Total Protein (6.3-8.2) g/dL Albumin (3.5-5.0) g/dL Amylase (30-110) U/L Lipase (23-300) U/L Urine Color Yellow Urine Appearance Cloudy H (Clear) Urine pH 8.5 H (5.0-8.0) Ur Specific [place] 1.021 (1.001-1.035) Urine Protein Trace H (Negative) Urine Glucose (UA) Negative (Negative) Urine Ketones Trace H (Negative) Urine Blood Negative (Negative) Urine Nitrite Negative (Negative) Urine Bilirubin Negative (Negative) Urine Urobilinogen 2.0 (<2.0) mg/dL Ur Leukocyte Esterase Negative (Negative) Urine RBC 2 (0-5) /hpf Urine WBC 1 (0-5) /hpf Ur Squamous Epith Cells 9 H (0-4) /hpf Urine Bacteria Rare H (None) /hpf Urine Mucus Rare H (None) /hpf Urine HCG, Qual Not Detected (Not Detectd) Disposition Clinical Impression: Constipation Disposition: Left Against Medical Advice Condition: Fair Is patient prescribed a controlled substance at d/c from ED?: No Referrals: Irlanda Carbajal MD [STAFF PHYSICIAN] - 1-2 days Time of Disposition: 22:00
[2022-11-07 20:21] LABS: Basophils % (A) 0 %; Eosinophils # (A) 0.1 k/uL (0-0.7); Eosinophils % (A) 1 %; HCT 38.3 % (34.0-46.0); HGB 12.6 gm/dL (11.4-16.0); Lymphocytes # (A) 2.4 k/uL (1.0-4.8); Lymphocytes % (A) 19 %; MCH 29.3 pg (25.0-35.0); MCHC 32.8 g/dL (31.0-37.0); MCV 89.2 fL (80.0-100.0); Mean Platelet Volume 7.3; Monocytes # (A) 0.8 k/uL (0-1.0); Monocytes % (A) 6 %; Neutrophils % (A) 72 %; Platelet Count 415 k/uL (150-450); RBC 4.29 m/uL (3.80-5.40); RDW 13.3 % (11.5-15.5); WBC 12.4 k/uL (3.8-10.6)
[2022-11-07 20:35] LABS: INR 0.9 (<1.2); Partial Thromboplastin Time 25.2 sec (22.0-30.0); Prothrombin Time 9.8 sec (9.0-12.0)
[2022-11-07 20:36] LABS: Appearance,Urine Cloudy (Clear); Bacteria,Urine Rare /hpf; Bilirubin,Urine Negative (Negative); Blood,Urine Negative (Negative); Color,Urine Yellow; Glucose,Urine (UA) Negative (Negative); Ketones,Urine Trace (Negative); Leukocyte Esterase,Urine Negative (Negative); Mucus,Urine Rare /hpf; Nitrite,Urine Negative (Negative); PH, Urine 8.5 (5.0-8.0); Protein,Urine Trace (Negative); RBC,Urine 2 /hpf (0-5); Specific Gravity,Urine 1.021 (1.001-1.035); Squamous Epithelial Cell,Urine 9 /hpf (0-4); WBC,Urine 1 /hpf (0-5)
[2022-11-07 20:37] LABS: ALT 20 U/L (4-34); AST 27 U/L (14-36); African American GFR (CKD) >90 (>60 ml/min/1.73 sqM); Albumin 3.9 g/dL (3.5-5.0); Alkaline Phosphatase 108 U/L (38-126); Amylase 42 U/L (30-110); Anion Gap 6 mmol/L; Blood Urea Nitrogen 9 mg/dL (7-17); Carbon Dioxide 27 mmol/L (22-30); Chloride 101 mmol/L (98-107); Glucose 104 mg/dL (74-99); Lipase 36 U/L (23-300); Non-African American GFR(CKD) >90 (>60 ml/min/1.73 sqM); Potassium 4.6 mmol/L (3.5-5.1); Sodium 134 mmol/L (137-145); Total Bilirubin 1.2 mg/dL (0.2-1.3); Total Protein 7.1 g/dL (6.3-8.2)
[2022-11-07] MEDS ORDERED: HYDROmorphone 1 MG/ML 1 ML SYRINGE IVP STA (21:02)
[2022-11-07 21:04] VITALS: BP 119/75; PULSE 115; RESP 20
[2022-11-07] MEDS ORDERED: LORazepam 2 MG/ML INJ IV STA (21:10)
--- NOTE | 2022-11-07 21:26 | CT ---
EXAMINATION TYPE: CT abdomen pelvis w con DATE OF EXAM: 11/07/2022 COMPARISON: None INDICATION: abdominal pain DLP: 763.8 mGycm, Automated exposure control for dose reduction was used. CONTRAST: 100 cc mL of Isovue 300. Study performed without Oral Contrast TECHNIQUE: Axial images were obtained from above the diaphragm to the pubic rami in the axial plane a t 5 mm thick sections. Reconstructed images are reviewed on the computer in the coronal plane. FINDINGS: Limited CT sections are obtained the lung bases. The lung bases are clear. CT ABDOMEN: Liver: Normal Spleen: Normal Pancreas: Normal Adrenal glands: The adrenal glands are normal. Gallbladder: Normal Kidneys: No masses are evident. No hydronephrosis is present. There is a 1.7 cm cyst superior pole right kidney Delayed images were obtained through the kidneys, which remain unremarkable. Aorta: Normal Inferior vena cava: Normal. CT PELVIS: Fecal debris is within the ascending and transverse colon. Mild fecal debris is within the descending colon. Correlate for constipation. No suspicious dilated loops of bowel are evident. Appendix: Not identified. No inflammatory changes or suspicious dilated tubular structures are eviden t. Urinary bladder: Normal. Genitourinary structures: Uterus and adnexa appear normal. Osseous structures: No suspicious lytic or sclerotic lesions. Facet degenerative changes are present. Scoliosis is present. There is fixation rods and screws within the lower thoracic spine within the f ield of view. IMPRESSIONS: 1. Correlate for constipation.
== END 2022-11-07 22:00 | disposition left against medical advice (07) ==
LOC: EC 18:38
DX: K59.00 Constipation, unspecified (principal); F17.200 Nicotine dependence, unspecified, uncomplicated; Z88.8 Allergy status to other drugs, medicaments and biological substances; Z86.59 Personal history of other mental and behavioral disorders; Z53.29 Procedure and treatment not carried out because of patient's decision for other reasons
CPT/HCPCS: 36415; 80053; 82150; 83605; 83690; 85025; 85610; 85730; 81001; 81025; 74177; 99284; 96374; 96375 ×2; 96361; J2060; J2270; J1170; Q9967

== ENCOUNTER 2024-10-08 01:10 | Emergency (ER) | payer OTHER ==
[2024-10-08 01:18] VITALS: BP 107/76; PULSE 114; RESP 20; TEMP 98.5
--- NOTE | 2024-10-08 02:07 | ED ---
Skin/Abscess/FB HPI - General Chief complaint: Skin/Abscess/Foreign Body Stated complaint: Absess in armpit Time Seen by Provider: 10/08/24 01:27 Source: patient, RN notes reviewed Mode of arrival: ambulatory Limitations: no limitations - History of Present Illness Initial comments: This is a 44-year-old female presenting with left armpit abscess x 4 days. Patient denies significant history of axillary abscesses in the past. Denies fever, chills, discharge, red streaking, radiating pain. MD complaint: abscess/boil Onset/Timin -: days(s) - Related Data Previous Rx's Medication Instructions Recorded Ziprasidone [Geodon] 40 mg PO HS #30 cap 09/04/19 busPIRone HCL [Buspar] 30 mg PO BID@1200,2100 #60 tab 09/04/19 lamoTRIgine [LaMICtal] 200 mg PO HS #60 tab 09/04/19 Cephalexin [Keflex] 500 mg PO Q6HR #40 cap 07/04/20 Ibuprofen [Motrin] 600 mg PO Q8HR PRN #20 tab 07/04/20 Cephalexin [Keflex] 500 mg PO Q6HR 1 Days #28 cap 10/08/24 Sulfamethox-Tmp 800-160Mg [Bactrim 1 tab PO Q12HR #14 tab 10/08/24 DS 800-160 mg] Allergies Allergy/AdvReac Type Severity Reaction Status Date / Time venlafaxine [From Effexor] Allergy Anaphylaxis Verified 10/08/24 01:18 Review of Systems ROS Statement: Those systems with pertinent positive or pertinent negative responses have been documented in the HPI. ROS Other: All systems not noted in ROS Statement are negative. Past Medical History Past Medical History: Cancer, Hyperlipidemia Additional Past Medical History / Comment(s): UTERINE CA. CERVICAL FRACTURE History of Any Multi-Drug Resistant Organisms: None Reported Past Surgical History: Adenoidectomy, Back Surgery, Tubal Ligation Additional Past Surgical History / Comment(s): neck, back, scoliosis. PRUDENCE LUPE TO SPINE Past Psychological History: Anxiety, Bipolar, Depression Smoking Status: Current every day smoker Past Alcohol Use History: Rare Past Drug Use History: None Reported General Exam Limitations: no limitations General appearance: alert, in no apparent distress Head exam: Present: atraumatic, normocephalic, normal inspection Eye exam: Present: normal appearance, PERRL, EOMI. Absent: scleral icterus, conjunctival injection, periorbital swelling ENT exam: Present: normal exam, mucous membranes moist Neck exam: Present: normal inspection. Absent: tenderness, meningismus, lympha denopathy Respiratory exam: Present: normal lung sounds bilaterally. Absent: respiratory distress, wheezes, rales, rhonchi, stridor Cardiovascular Exam: Present: regular rate, normal rhythm, normal heart sounds. Absent: systolic murmur, diastolic murmur, rubs, gallop, clicks GI/Abdominal exam: Present: soft, normal bowel sounds. Absent: distended, tenderness, guarding, rebound, rigid Extremities exam: Present: normal inspection, full ROM, normal capillary refill. Absent: tenderness, pedal edema, joint swelling, calf tenderness Back exam: Present: normal inspection Neurological exam: Present: alert, oriented X3, CN II-XII intact Psychiatric exam: Present: normal affect, normal mood Skin exam: Present: warm, dry, intact, normal color, other (2 cm erythematous, tender, fluctuant mass noted in left axilla without obvious discharge). Absent: rash Course Vital Signs 10/08/24 01:16 Temperature 98.5 F Pulse Rate 114 H Respiratory 20 Rate Blood Pressure 107/76 O2 Sat by Pulse 99 Oximetry Procedures - Incision & Drainage Consent Obtained: verbal consent Indication: Abscess Site: other (Left axilla) Size (cm): 2 Anesthetic Used: lidocaine 1% Amount (mLs): 3 I&D Cleaning Method: Betadine Sterile Field Used?: No Scalpel Used: #11 Ultrasound used: No Needle Aspiration Performed?: No Irrigation Performed?: Yes I&D Drainage Obtained: Pus, Blood Insertion of drain: No Culture Obtained?: Yes Patient Tolerated Procedure: well, no complications Medical Decision Making - Medical Decision Making Was pt. sent in by a medical professional or institution (, PA, [employer]ER, urgent care, hospital, or snf...) When possible be specific @ -No Did you speak to anyone other than the patient for history (EMS, parent, family, police, friend...)? What history was obtained from this source @ -No Did you review nursing and triage notes (agree or disagree)? Why? @ -I reviewed and agree with nursing and triage notes Were old charts reviewed (outside hosp., previous admission, EMS record, old EKG, old radiological studies, urgent care reports/EKG's, snf records)? Report findings @ -No old charts were reviewed Differential Diagnosis (chest pain, altered mental status, abdominal pain women, abdominal pain men, vaginal bleeding, weakness, fever, dyspnea, syncope, headache, dizziness, GI bleed, back pain, seizure, CVA, palpatations, mental health, musculoskeletal)? @ -Differential Musculoskeletal Muscular strain, contusion, ligament sprain, fracture, arthritis, septic arthritis, bursitis, cellulitis, muscle spasm, nerve compression, DVT, arterial occlusion, herpes zoster, electrolyte abnormality, tumor.... This is not meant to be in all inclusive list EKG interpreted by me (3pts min.). @ -Not done X-rays interpreted by me (1pt min.). @ -None done CT interpreted by me (1pt min.). @ -None done U/S interpreted by me (1pt. min.). @ -None done What testing was considered but not performed or refused? (CT, X-rays, U/S, labs)? Why? @ -None What meds were considered but not given or refused? Why? @ -None Did you discuss the management of the patient with other professionals (professionals i.e. , PA, [employer]ER, lab, RT, psych nurse, family welfare social work professor, victim advocate, teacher, risk control officer, case packer and sealer)? Give summary @ -No Was smoking cessation discussed for >3mins.? @ -No Was critical care preformed (if so, how long)? @ -No Were there social determinants of health that impacted care today? How? (Homelessness, low income, unemployed, alcoholism, drug addiction, transportation, low edu. Level, literacy, decrease access to med. care, group home, rehab)? @ -No Was there de-escalation of care discussed even if they declined (Discuss DNR or withdrawal of care, Hospice)? DNR status @ -No What co-morbidities impacted this encounter? (DM, HTN, Smoking, COPD, CAD, Cancer, CVA, ARF, Chemo, Hep., AIDS, mental health diagnosis, sleep apnea, morbid obesity)? @ -None Was patient admitted / discharged? Hospital course, mention meds given and route, prescriptions, significant lab abnormalities, going to OR and other pertinent info. @ -Incision and drainage performed with significant amount of thick purulent material expressed. Wound flushed copiously with normal saline and aerobic wound culture obtained. Wound covered with 2 x 2 gauze and tape. Patient provided initial dose of p.o. Bactrim DS and Keflex. Remaining Bactrim DS and Keflex regimen sent to patient's pharmacy. Advised to keep incision clean with antibacterial soap and water at least twice daily along with dressing changes. Follow-up with PCP for any ongoing or worsening symptoms. Undiagnosed new problem with uncertain prognosis? @ -No Drug Therapy requiring intensive monitoring for toxicity (Heparin, Nitro, Insulin, Cardizem)? @ -No Were any procedures done? @ -Incision and drainage performed. See procedure note Diagnosis/symptom? @ -Axillary abscess Acute, or Chronic, or Acute on Chronic? @ -Acute Uncomplicated (without systemic symptoms) or Complicated (systemic symptoms)? @ -Uncomplicated Side effects of treatment? @ -No Exacerbation, Progression, or Severe Exacerbation? @ -No Poses a threat to life or bodily function? How? (Chest pain, [place], [place], pneumonia, PE, COPD, DKA, ARF, appy, cholecystitis, CVA, Diverticulitis, Homicidal, Suicidal, threat to staff... and all critical care pts) @ -No Disposition Clinical Impression: Cutaneous abscess of left axilla Disposition: HOME SELF-CARE Condition: Good Instructions (If sedation given, give patient instructions): Abscess (ED) Additional Instructions: Warm compress for 10 minutes up to 4 times daily. Keep clean with antibacterial soap and water at least twice daily along with dressing change. Alternate Tylenol/Motrin every 4 hours for pain. Follow-up with PCP for any ongoing or returning symptoms. Prescriptions: Sulfamethox-Tmp 800-160Mg [Bactrim DS 800-160 mg] 1 tab PO Q12HR #14 tab Cephalexin [Keflex] 500 mg PO Q6HR 1 Days #28 cap Is patient prescribed a controlled substance at d/c from ED?: No Referrals: None,Stated [Primary Care Provider] - 1-2 days Asha Sherman NPC [Nurse Practitioner] - 1-2 days Time of Disposition: 02:41
[2024-10-08] MEDS: CEPHALEXIN 500 MG CAP PO STA (02:24)
[2024-10-08] MEDS: SULFAMETHOX-TMP 800-160MG 1 EACH TAB PO STA (02:24)
== END 2024-10-08 02:49 | disposition home or self-care (01) ==
LOC: EC 01:10
DX: L02.412 Cutaneous abscess of left axilla (principal); F17.200 Nicotine dependence, unspecified, uncomplicated; Z88.5 Allergy status to narcotic agent
CPT/HCPCS: 10060; 87070; 87077; 87186; 87205; 99282